=== PATIENT | male | born 1995 | race Asian ===

== ENCOUNTER 2019-05-13 15:10 | Emergency (ER) | payer OTHER ==
--- NOTE | 2019-05-13 16:05 | ED ---
Neurological HPI - HPI Summary HPI Summary: The pt is a 23 yr old male presenting to [facility] c/o seizure beginning 2 hours [employer]. He says that he was in his office after lunch when he experienced seizure- like symptoms and fell off of a table . He does not remember much of the event, and one of his co-workers called the EMS for him. The pt reports pain from the abrasions on his forehead and right hand and rates his current pain severity a 3 /10. He also reports memory loss, but denies SOB, CP, abd pain, nausea, leg pain, neck pain, arm pain, vision problems, and weakness. He mentions some Hx of seizures when he travels long distances but he is not entirely sure. - History of Current Complaint Chief Complaint: EDSeizure Stated Complaint: POSSIBLE SEIZURE PER EMS Time Seen by Provider: 05/13/19 15:52 Hx Obtained From: Patient Onset/Duration: Sudden Onset, Started hours ago Timing: Sudden Onset Pain Intensity: 3 Pain Scale Used: 0-10 Numeric Syncope Context: Witnessed, Loss of Consciousness: Yes, At Rest Aggravating: Change in Head Position Alleviating: Unknown Associated Signs and Symptoms: Positive: Memory Loss, Seizure. Negative: Visual Changes, Nausea/Vomiting, Chest Pain, Shortness of Breath - Allergy/Home Medications Allergies/Adverse Reactions: Allergies Allergy/AdvReac Type Severity Reaction Status Date / Time No Known Allergies Allergy Verified 05/13/19 15:31 Home Medications: Home Medications NK [No Home Medications Reported] 05/13/19 [History Confirmed 05/13/19] PMH/Surg Hx/FS Hx/Imm Hx Previously Healthy: Yes Endocrine/Hematology History: Denies: Hx Diabetes Cardiovascular History: Denies: Hx Hypertension, Hx Pacemaker/ICD History: Denies: Hx Dialysis, Hx Renal Disease Sensory History: Denies: Hx Legally Blind, Hx Deafness, Hx Hearing Aid Opthamlomology History: Denies: Hx Legally Blind EENT History: Denies: Hx Deafness Psychiatric History: Denies: Hx Panic Disorder - Immunization History Immunizations Up to Date: Yes Infectious Disease History: No Infectious Disease History: Denies: Traveled Outside the [place] in Last 30 Days - Family History Known Family History: Negative: Hypertension, Diabetes - Social History Alcohol Use: None Hx Substance Use: No Substance Use Type: Reports: None Hx Tobacco Use: No Smoking Status (MU): Never Smoked Tobacco Review of Systems Negative: Blurred Vision Negative: Chest Pain Negative: Shortness Of Breath Negative: Abdominal Pain, Nausea Negative: Other - leg pain, neck pain, arm pain Neurological: Other - Positive - seizure All Other Systems Reviewed And Are Negative: Yes Physical Exam - Summary Physical Exam Summary: Constitutional: Well-developed, Well-nourished, Alert. (-) Distressed Skin: Warm, Dry, Abrasion across forehead, small 0.5 cm abrasion on hand between 2nd and 3rd joints on dorsum of right hand. HENT: Normocephalic; Atraumatic Eyes: Conjunctiva normal Neck: Musculoskeletal ROM normal neck. (-) JVD, (-) Stridor, (-) Tracheal deviation Cardio: Rhythm regular, rate normal, Heart sounds normal; Intact distal pulses; The pedal pulses are 2+ and symmetric. Radial pulses are 2+ and symmetric. (-) Murmur Pulmonary/Chest wall: Effort normal. (-) Respiratory distress, (-) Wheezes, (-) Rales Abd: Soft, (-) tenderness, (-) Distension, (-) Guarding, (-) Rebound Musculoskeletal: (-) Edema Lymph: (-) Cervical adenopathy Neuro: Alert, Oriented x3 Psych: Mood and affect Normal Triage Information Reviewed: Yes Vital Signs On Initial Exam: Initial Vitals Temp Pulse Resp BP Pulse Ox 98.2 F 92 18 121/75 98 05/13/19 15:22 05/13/19 15:22 05/13/19 15:22 05/13/19 15:22 05/13/19 15:22 Vital Signs Reviewed: Yes - Noel Coma Scale Best Eye Response: 4 - Spontaneous Best Motor Response: 6 - Obeys Commands Best Verbal Response: 5 - Oriented Coma Scale Total: 15 Diagnostics - Vital Signs Vital Signs Temp Pulse Resp BP Pulse Ox 05/13/19 15:22 98.2 F 92 18 121/75 98 - Laboratory Result Diagrams: 05/13/19 16:22 05/13/19 16:22 Lab Statement: Any lab studies that have been ordered have been reviewed, and results considered in the medical decision making process. - CT Brain CT CT Interpretation Completed By: Radiologist Summary of CT Findings: No acute intracranial pathology. ED physician has reviewed this report. - EKG 1646 Cardiac Rate: NL - 84bpm EKG Rhythm: Sinus Rhythm ST Segment: Non-Specific Ectopy: None Summary of EKG Findings: EKG at 1646 shows NSR at 84bpm with nml axis, nml intervals, and ST elevations in II, III, and aVF. Course/Dx - Course Course Of Treatment: The pt is a 23 yr old male presenting to [facility] c/o seizure beginning 2 hours [employer]. He does not remember much of the event, and one of his co -workers called the EMS for him. The pt reports pain from the abrasions on his forehead and right hand and rates his current pain severity a 3/10. He also reports memory loss, but denies SOB, CP, abd pain, nausea, leg pain, neck pain, arm pain, vision problems, and weakness. He mentions some Hx of seizures when he travels long distances but he is not entirely sure. The physical exam is only notable for an abrasion across the forehead and a small 0 .5 cm abrasion on hand between 2nd and 3rd joints on the right hand dorsum. Test results with no significant abnormalities except for creatinine @ 1.21, Glucose @ 124, and 1 + Urine Protein. A brain CT reveals no acute intracranial pathology. EKG at 1646 shows NSR at 84bpm with nml axis, nml intervals, and ST elevations in II, III, and aVF. Pt will be d/c'ed with dx including seizure and syncope, and instructions to f/u with Dr. More. He is stable and agreeable with this plan. - Diagnoses Provider Diagnoses: Seizure, Syncope Discharge - Sign-Out/Discharge Documenting (check all that apply): Patient Departure Patient Received Moderate/Deep Sedation with Procedure: No - Discharge Plan Condition: Stable Disposition: HOME Patient Education Materials: Syncope (ED), New-Onset Seizure in Adults (ED) Print Language: FILIPINO Referrals: El More MD [Medical Doctor] - Nicolas Cadet MD [Primary Care Provider] - Additional Instructions: You can not drive until cleared by your neurologist. - Attestation Statements Document Initiated by Scribe: Yes Documenting Scribe: Satish Kline Provider For Whom Scribe is Documenting (Include Credential): María Man MD Scribe Attestation: ISatish, scribed for María Mendez MD on 05/13/19 at 2005. Status of Scribe Document: Ready Consult Consult: 3186 - I spoke with Dr. Maldonado who recommends not driving and following up with Dr. More.
[2019-05-13 16:33] LABS: ABS Lymphocytes 1.2 10^3/ul (1.0-4.8); ABS Monocytes 0.6 10^3/ul (0-0.8); ABS Neutrophils 6.7 10^3/ul (1.5-7.7); Eosinophil % 0.3 %; Hematocrit 46 % (42-52); Hemoglobin 15.8 g/dL (14.0-18.0); Lymphocyte % 13.9 %; Mean Corpuscular HGB Conc 35 g/dL (31-36); Mean Corpuscular Hemoglobin 30 pg (27-31); Mean Corpuscular Volume 86 fL (80-94); Mean Platelet Volume 7.6 fL (7.4-10.4); Nucleated Red Blood Cells % 0.1; Platelet Count 224 10^3/uL (150-450); Red Blood Count 5.33 10^6 /uL (4.18-5.48); Red Cell Distribution Width 13 % (10-15); White Blood Count 8.6 10^3/uL (3.5-10.8)
[2019-05-13 16:39] LABS: INR 1.03 (0.82-1.09)
[2019-05-13 17:00] LABS: Albumin 4.8 g/dL (3.2-5.2); Albumin/Globulin Ratio 1.7 (1-3); BUN/Creatinine Ratio 16.5 (8-20); Calcium 10.3 mg/dL (8.6-10.3); EGFR African American 88.4 (>60); EGFR Non-African American 73.1 (>60); Globulin 2.9 g/dL (2-4); Magnesium 2.4 mg/dL (1.9-2.7); Potassium 3.8 mmol/L (3.5-5.0); Total Protein 7.7 g/dL (6.4-8.9)
[2019-05-13 17:04] LABS: Urine Appearance Cloudy; Urine Bacteria Absent (Absent); Urine Bilirubin Negative (Negative); Urine Blood Negative (Negative); Urine Color Yellow; Urine Glucose Negative (Negative); Urine Ketones Negative (Negative); Urine Nitrite Negative (Negative); Urine Protein 1+(30 mg/dL) (Negative); Urine Red Blood Cell Trace(0-2/hpf) (Absent); Urine Specific Gravity 1.021 (1.010-1.030); Urine Urobilinogen Negative (Negative); Urine White Blood Cell Trace(0-5/hpf) (Absent)
[2019-05-13 19:14] VITALS: BP 119/83
== END 2019-05-13 19:12 | disposition home or self-care (01) ==
LOC: ED 15:10
DX: R56.9 Unspecified convulsions (principal); R55 Syncope and collapse; S00.81XA Abrasion of other part of head, initial encounter; S60.511A Abrasion of right hand, initial encounter; W17.89XA Other fall from one level to another, initial encounter; Y92.59 Other trade areas as the place of occurrence of the external cause; Y99.0 Civilian activity done for income or pay
CPT/HCPCS: 36415; 70450; 80053; 81003; 81015; 83605; 83735; 85025; 85610; 87086; 93005; 99282